=== PATIENT | male | born 1975 | race Caucasian/White ===

== ENCOUNTER 2017-01-22 21:40 | Emergency (ER) | payer OTHER ==
[~2017-01-22] VITALS: Ht 180.3 cm; Wt 93.4 kg
[~2017-01-22 21:40] MED LIST: CLON0.2T12 PO; PANT40TA4 PO
[2017-01-22] MEDS ORDERED: ONDANSETRON ODT 4 MG TAB.RAPDIS SL ONE (23:00)
[2017-01-22] MEDS ORDERED: OXYCODONE/APAP 5-325 MG TABLET PO ONE (23:00)
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
[2017-01-22] MEDS ORDERED: ONDANSETRON ODT 4 MG TAB.RAPDIS ONE (23:12)
[2017-01-22] MEDS ORDERED: OXYCODONE/APAP 5-325 MG TABLET ONE (23:13)
--- NOTE | 2017-01-23 01:00 | NUR ---
Patient discharged to home in stable conditon. Written and verbal after care instructions given. Patient verbalizes understanding of instructions. WALKED OUT OF ER WITH STEADY GAIT WITH NO DISTRESS NOTED
[2017-01-23 01:38] VITALS: BP 140/100
== END 2017-01-23 01:39 | disposition home or self-care (01) ==
LOC: ER 21:40
DX: S16.1XXA Strain of muscle, fascia and tendon at neck level, initial encounter (principal); M54.5 Low back pain; F41.9 Anxiety disorder, unspecified; F41.0 Panic disorder [episodic paroxysmal anxiety]; F17.200 Nicotine dependence, unspecified, uncomplicated; Z88.6 Allergy status to analgesic agent; V43.52XA Car driver injured in collision with other type car in traffic accident, initial encounter; Y93.89 Activity, other specified; Y99.8 Other external cause status; Y92.411 Interstate highway as the place of occurrence of the external cause
CPT/HCPCS: 72072; 72100; 72125; A4663; Q0162

== ENCOUNTER 2019-01-16 19:24 | Inpatient (IN) | payer OTHER ==
[~2019-01-16] VITALS: Ht 177.8 cm; Wt 85.7 kg
[2019-01-16] MEDS ORDERED: LORAZEPAM 2 MG/1 ML VIAL IV ONE (19:30)
[2019-01-16] MEDS ORDERED: ASPIRIN 325 MG TABLET PO ONE (19:30)
[2019-01-16] MEDS ORDERED: NITROGLYCERIN 0.4 MG/TAB BOTTLE SL ONE ×2 (19:30→19:43)
[2019-01-16] MEDS ORDERED: ASPIRIN 325 MG TABLET ONE (19:42)
[2019-01-16] MEDS ORDERED: LORAZEPAM 2 MG/1 ML VIAL ONE (19:43)
[2019-01-16 19:45] LABS: BASOPHILS # (AUTO) 0.1 K/uL (0.0-8.0); BASOPHILS % (AUTO) 0.6 % (0.0-2.0); EOSINOPHILS # (AUTO) 0.1 K/uL (0.0-0.7); EOSINOPHILS % (AUTO) 1.5 % (0.0-7.0); HEMATOCRIT 44.5 % (36.7-47.1); LYMPHOCYTES # (AUTO) 1.1 K/uL (20.0-40.0); LYMPHOCYTES % (AUTO) 14.2 % (20.5-51.5); MEAN CORPUSCULAR HEMOGLOBIN 28.3 uug (23.8-33.4); MEAN CORPUSCULAR HGB CONC 34 g/dL (32.5-36.3); MEAN CORPUSCULAR VOLUME 83.9 fL (73.0-96.2); MONOCYTES # (AUTO) 0.3 K/uL (2.0-10.0); MONOCYTES % (AUTO) 4.1 % (0.0-11.0); NEUTROPHILS # (AUTO) 6.3 K/uL (1.8-8.9); NEUTROPHILS % (AUTO) 79.6 % (38.5-71.5); PLATELET COUNT (AUTO) 256 K/uL (152-348); WHITE BLOOD COUNT (AUTO) 7.9 K/uL (3.6-10.2)
--- NOTE | 2019-01-16 19:47 | NUR ---
AFTER 1ST DOSE OF NITRO SUB LINGUAL. CP IS 7/10 CHEST PRESSURE
--- NOTE | 2019-01-16 19:52 | NUR ---
AFTER 2ND DOSE OF NITRO CP IS 5/10 PRESSURE PAIN. HELD 3RD DOSE OF NITRO DUE TO BP AT 84/47 DR LARSEN AWARE
[2019-01-16 20:02] LABS: CREATININE 0.9 mg/dL (0.6-1.3); POTASSIUM 3.8 mmol/L (3.5-5.1)
[2019-01-16 20:15] LABS: BILIRUBIN,DIRECT 0.1 mg/dL (0.0-0.2); BILIRUBIN,TOTAL 0.4 mg/dL (0.2-1.0); TOTAL PROTEIN, SERUM 8.1 g/dL (6.4-8.2)
[2019-01-16] MEDS ORDERED: ALPRAZOLAM 0.5 MG (20:34)
[2019-01-16] MEDS ORDERED: OXYCODONE/APAP 5-325 MG TABLET ONE (22:39)
[2019-01-16] MEDS ORDERED: OXYCODONE/APAP 5-325 MG TABLET PO ONE (22:45)
[2019-01-17 00:10] VITALS: BP 106/69
--- NOTE | 2019-01-17 00:10 | NUR ---
transfered t 2nd floor
--- NOTE | 2019-01-17 00:35 | NUR ---
Received patient from ER. Patient is A/Ox4. Patient is able to ambulate from the gurney to the bed, a little unsteady. Have bed alarm on for now and explained to patient to call us for standby assist to the restroom. No signs of acute distress noted. Patient still complaining of chest pain, no SOB. Belongings list done. Safety measures initiated. Bed is low and locked, call light within reach. Will continue with the admission process.
[2019-01-17] MEDS ORDERED: ZOLPIDEM 5 MG TABLET PO PRN (01:30)
[2019-01-17] MEDS ORDERED: ACETAMINOPHEN 325 MG TABLET PO PRN (01:30)
[2019-01-17] MEDS ORDERED: ONDANSETRON 4 MG/2 ML VIAL IV PRN (01:30)
[2019-01-17] MEDS ORDERED: Z GUARD REMEDY PASTE 57 GM TUBE TOP PRN (01:30)
[2019-01-17] MEDS ORDERED: ENOXAPARIN SODIUM 40 MG/0.4 ML DISP.SYRIN SQ ONE (02:00)
[2019-01-17 03:16] VITALS: BP 91/57
[2019-01-17] MEDS: MORPHINE SULFATE 2 MG/1 ML DISP.SYRIN IV PRN ×3 (04:48→13:57)
--- NOTE | 2019-01-17 07:49 | NUR ---
Pt.sleeping,no s/s of distress or pain noted.
[2019-01-17] MEDS ORDERED: CARVEDILOL 3.125 MG TABLET PO SCH (08:00)
[2019-01-17] MEDS ORDERED: ASPIRIN EC 81 MG TABLET.DR PO SCH (09:00)
[2019-01-17 11:00] VITALS: BP 80/52
--- NOTE | 2019-01-17 12:09 | NUR ---
Pt.was seen by .
--- NOTE | 2019-01-17 12:45 | NUR ---
Pt.was seen by with c/c home orders.
[2019-01-17 16:00] VITALS: BP 85/68
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
--- NOTE | 2019-01-17 19:20 | NUR ---
Received patient lying in bed. AAOX4. in no acute distress. Denies any chest pain or SOB. NSR on tele at 92/min. Patient reported dizziness going away now. BP now 121/85. Wanted to take a shower before discharge. KELSEY Patel to assist patient. Other needs attended to and met. Continue to monitor.
[2019-01-17 20:00] VITALS: BP 121/85
[2019-01-17] MEDS ORDERED: ENOXAPARIN SODIUM 40 MG/0.4 ML DISP.SYRIN SQ SCH (21:00)
[2019-01-17] MEDS ORDERED: ATORVASTATIN 20 MG TABLET PO SCH (21:00)
--- NOTE | 2019-01-17 21:15 | NUR ---
Patient remains AAOX4. Denies any further dizziness. VS WNL. Stated he can leave now. Tele monitor removed. IV line discontinued and name tag removed. Discharge to home. Patient has private transportation.
== END 2019-01-17 21:15 | disposition home or self-care (01) | DRG 203 ==
LOC: ER 19:24 → TELE3 23:36
PROVIDERS: ADMIT Nurse Practitioner Acute Care
DX: R07.89 Other chest pain (principal); F41.0 Panic disorder [episodic paroxysmal anxiety]; I10 Essential (primary) hypertension; G89.29 Other chronic pain; K29.70 Gastritis, unspecified, without bleeding; Z87.11 Personal history of peptic ulcer disease; Z90.49 Acquired absence of other specified parts of digestive tract
CPT/HCPCS: 36415; 70030-TC; 71045; 85025; 85730; 93005; 93307; G0378; J1650; J2060; J2270; J7040

== ENCOUNTER 2019-05-28 18:00 | Emergency (ER) | payer OTHER ==
[~2019-05-28] VITALS: Ht 180.3 cm; Wt 85.3 kg
[~2019-05-28 18:00] MED LIST changes: +ALPRAZOLAM 0.5 MG; -PANT40TA4 PO
--- NOTE | 2019-05-28 19:53 | NUR ---
Patient discharged to home in stable conditon. Written and verbal after care instructions given. Patient verbalizes understanding of instructions. AMBULATORY WITH STABLE GAIT ALL BELONGINGS WITH PT
[2019-05-28 23:30] VITALS: BP 130/80
== END 2019-05-28 19:50 | disposition home or self-care (01) ==
LOC: ER 18:06
DX: M77.11 Lateral epicondylitis, right elbow (principal); I10 Essential (primary) hypertension; F41.9 Anxiety disorder, unspecified; F17.200 Nicotine dependence, unspecified, uncomplicated; F41.0 Panic disorder [episodic paroxysmal anxiety]; Z90.49 Acquired absence of other specified parts of digestive tract; Z88.8 Allergy status to other drugs, medicaments and biological substances; Z79.899 Other long term (current) drug therapy
CPT/HCPCS: 73080; A4663

== ENCOUNTER 2019-10-06 15:11 | Emergency (ER) | payer OTHER ==
[~2019-10-06] VITALS: Ht 180.3 cm; Wt 83.9 kg
[2019-10-06] MEDS ORDERED: IV NORMAL SALINE 500 ML BAG IV ONE (16:15)
[2019-10-06] MEDS ORDERED: NITROGLYCERIN 0.4 MG/TAB BOTTLE SL ONE ×2 (16:15→16:29)
[2019-10-06 16:31] LABS: BASOPHILS % (AUTO) 0.8 % (0.0-2.0); EOSINOPHILS % (AUTO) 0.1 % (0.0-7.0); HEMATOCRIT 42.9 % (36.7-47.1); HEMOGLOBIN 14.4 g/dL (12.5-16.3); LYMPHOCYTES # (AUTO) 0.7 K/uL (20.0-40.0); LYMPHOCYTES % (AUTO) 15.8 % (20.5-51.5); MEAN CORPUSCULAR HEMOGLOBIN 28.4 uug (23.8-33.4); MEAN CORPUSCULAR HGB CONC 34 g/dL (32.5-36.3); MEAN CORPUSCULAR VOLUME 84.8 fL (73.0-96.2); MONOCYTES # (AUTO) 0.3 K/uL (2.0-10.0); MONOCYTES % (AUTO) 6.5 % (0.0-11.0); NEUTROPHILS # (AUTO) 3.4 K/uL (1.8-8.9); NEUTROPHILS % (AUTO) 76.8 % (38.5-71.5); PLATELET COUNT (AUTO) 265 K/uL (152-348); RED BLOOD CELL COUNT(AUTO) 5.07 MIL/uL (4.06-5.63); WHITE BLOOD COUNT (AUTO) 4.5 K/uL (3.6-10.2)
[2019-10-06 16:40] LABS: CREATININE 0.9 mg/dL (0.6-1.3); POTASSIUM 3.4 mmol/L (3.5-5.1)
[2019-10-06 16:52] LABS: BILIRUBIN,DIRECT 0.2 mg/dL (0.0-0.2); BILIRUBIN,TOTAL 0.5 mg/dL (0.2-1.0); TOTAL PROTEIN, SERUM 7.9 g/dL (6.4-8.2)
[2019-10-06] MEDS ORDERED: ONDANSETRON 4 MG/2 ML VIAL ONE (17:29)
[2019-10-06] MEDS ORDERED: HYDROMORPHONE 1 MG/1 ML DISP.SYRIN ONE (17:29)
[2019-10-06] MEDS ORDERED: PANTOPRAZOLE SODIUM 40 MG VIAL IV ONE (17:30)
[2019-10-06] MEDS ORDERED: PANTOPRAZOLE SODIUM 40 MG VIAL ONE (17:30)
[2019-10-06] MEDS ORDERED: HYDROMORPHONE 1 MG/1 ML DISP.SYRIN IV ONE (17:30)
[2019-10-06] MEDS ORDERED: ONDANSETRON 4 MG/2 ML VIAL IV ONE (17:30)
--- NOTE | 2019-10-06 17:50 | NUR ---
Patient discharged to home in stable conditon. Written and verbal after care instructions given. Patient verbalizes understanding of instructions. Patient ambulated with stable gait. Patient instructed not to drive d/t medications. Stated he will have his son or uber/lyft take him home. IV removed. Catheter intact and site benign. Pressure and 4x4 gauze applied to site. No bleeding noted.
[2019-10-06 17:51] VITALS: BP 111/85
== END 2019-10-06 17:51 | disposition home or self-care (01) ==
LOC: ER 15:11
DX: R07.89 Other chest pain (principal); I10 Essential (primary) hypertension; F41.9 Anxiety disorder, unspecified; F17.200 Nicotine dependence, unspecified, uncomplicated; Z90.49 Acquired absence of other specified parts of digestive tract; Z88.8 Allergy status to other drugs, medicaments and biological substances; Z79.899 Other long term (current) drug therapy
CPT/HCPCS: 36415; 71045; 80048; 80076; 83880; 84484; 85025; 85730; 93005; 96374; 96375; 99284; C9113; J1170; J2405; 70030-TC; A4663; J7040

== ENCOUNTER 2019-11-11 01:43 | Emergency (ER) | payer OTHER ==
[~2019-11-11] VITALS: Ht 180.3 cm; Wt 81.6 kg
--- NOTE | 2019-11-11 01:45 | NUR ---
Dr. Cisneros at bedside for MSE
[2019-11-11] MEDS ORDERED: DEXAMETHASONE SOD PHOSPHATE 4 MG INJ ONE (02:10)
[2019-11-11] MEDS ORDERED: ACETAMINOPHEN ES 500 MG TABLET ONE (02:10)
[2019-11-11] MEDS: DEXAMETHASONE SOD PHOSPHATE 4 MG INJ IM ONE (02:14)
[2019-11-11] MEDS: ACETAMINOPHEN ES 500 MG TABLET PO ONE (02:15)
[2019-11-11] MEDS ORDERED: HYDROCODONE/APAP 5-325MG TABLET ONE (03:19)
[2019-11-11] MEDS: HYDROCODONE/APAP 5-325MG TABLET PO ONE (03:21)
--- NOTE | 2019-11-11 04:50 | NUR ---
cervical collar applied per Dr. Cisneros's orders. Patient tolerated well
--- NOTE | 2019-11-11 04:59 | NUR ---
Patient taken to CT scan in stable condition
--- NOTE | 2019-11-11 05:08 | NUR ---
Patient back from CT scan
[2019-11-11] MEDS ORDERED: ONDANSETRON ODT 4 MG TAB.RAPDIS ONE (05:41)
[2019-11-11] MEDS ORDERED: HYDROMORPHONE 1 MG/1 ML DISP.SYRIN ONE (05:42)
[2019-11-11] MEDS: HYDROMORPHONE 1 MG/1 ML DISP.SYRIN IM ONE (05:50)
[2019-11-11] MEDS: ONDANSETRON ODT 4 MG TAB.RAPDIS SL ONE (05:53)
--- NOTE | 2019-11-11 06:11 | NUR ---
Patient discharged to home in stable conditon. Written and verbal after care instructions given. Patient verbalizes understanding of instructions. Wheeled patient to parking lot to son's car. Patient stated he is not driving home.
[2019-11-11 06:14] VITALS: BP 138/91
== END 2019-11-11 06:11 | disposition home or self-care (01) ==
LOC: ER 01:47
DX: S89.91XA Unspecified injury of right lower leg, initial encounter (principal); S13.9XXA Sprain of joints and ligaments of unspecified parts of neck, initial encounter; S23.3XXA Sprain of ligaments of thoracic spine, initial encounter; S09.90XA Unspecified injury of head, initial encounter; I10 Essential (primary) hypertension; F41.9 Anxiety disorder, unspecified; F17.200 Nicotine dependence, unspecified, uncomplicated; G89.29 Other chronic pain; Z90.49 Acquired absence of other specified parts of digestive tract; Z88.6 Allergy status to analgesic agent; Z60.2 Problems related to living alone; Z79.899 Other long term (current) drug therapy; W01.0XXA Fall on same level from slipping, tripping and stumbling without subsequent striking against object, initial encounter; Y93.53 Activity, golf; Y92.89 Other specified places as the place of occurrence of the external cause; Y99.8 Other external cause status
CPT/HCPCS: 29505; 72040; 72100; 72125; 96372 ×2; 99284; J1100; J1170; A4663; A9150; Q0162

== ENCOUNTER 2019-11-12 04:58 | Emergency (ER) | payer OTHER ==
[~2019-11-12] VITALS: Ht 180.3 cm; Wt 81.6 kg
[2019-11-12] MEDS ORDERED: DEXAMETHASONE SOD PHOSPHATE 4 MG INJ ONE (05:24)
--- NOTE | 2019-11-12 05:26 | NUR ---
Patient discharged to home in stable conditon. Written and verbal after care instructions given. Patient verbalizes understanding of instructions.
[2019-11-12] MEDS ORDERED: DEXAMETHASONE SOD PHOSPHATE 4 MG INJ IM ONE (05:30)
== END 2019-11-12 05:27 | disposition home or self-care (01) ==
LOC: ER 05:02
DX: M54.2 Cervicalgia (principal); I10 Essential (primary) hypertension; F41.9 Anxiety disorder, unspecified; G89.29 Other chronic pain; F17.200 Nicotine dependence, unspecified, uncomplicated; Z60.2 Problems related to living alone; Z79.899 Other long term (current) drug therapy; Z90.49 Acquired absence of other specified parts of digestive tract; Z88.6 Allergy status to analgesic agent; W01.0XXA Fall on same level from slipping, tripping and stumbling without subsequent striking against object, initial encounter; Y93.53 Activity, golf; Y92.89 Other specified places as the place of occurrence of the external cause; Y99.8 Other external cause status
CPT/HCPCS: 96372; 99283; J1100; A4663

== ENCOUNTER 2019-12-02 21:02 | Emergency (ER) | payer OTHER ==
[~2019-12-02] VITALS: Ht 180.3 cm; Wt 83.9 kg
--- NOTE | 2019-12-02 21:50 | NUR ---
Dr. Lara at bedside for MSE.
[2019-12-02] MEDS ORDERED: HYDROMORPHONE 2 MG/1 ML DISP.SYRIN ONE (21:54)
[2019-12-02] MEDS ORDERED: ONDANSETRON 4 MG/2 ML VIAL ONE (21:54)
--- NOTE | 2019-12-02 21:59 | NUR ---
Xray at bedside.
[2019-12-02] MEDS ORDERED: HYDROMORPHONE 1 MG/1 ML DISP.SYRIN IM ONE (22:00)
[2019-12-02] MEDS ORDERED: ONDANSETRON 4 MG/2 ML VIAL IM ONE (22:00)
--- NOTE | 2019-12-02 22:31 | NUR ---
Patient discharged to home in stable conditon. Written and verbal after care instructions given. Patient verbalizes understanding of instructions. PT ambulated out of ER with crutches, no falls noted, no acute signs of distress, VSS, all belongings taken.
--- NOTE | 2019-12-02 22:31 | NUR ---
Note jayleen in EDM - 12/02/19 at 2231 by JOE Patient discharged to home in stable conditon. Written and verbal after care instructions given. Patient verbalizes understanding of instructions. PT ambulated out of ER with steady gait, no acute signs of distress, VSS, all belongings taken.
[2019-12-02 22:32] VITALS: BP 105/75
== END 2019-12-02 22:32 | disposition home or self-care (01) ==
LOC: ER 21:02
DX: M25.561 Pain in right knee (principal); I10 Essential (primary) hypertension; F17.200 Nicotine dependence, unspecified, uncomplicated; Z90.49 Acquired absence of other specified parts of digestive tract; Z88.8 Allergy status to other drugs, medicaments and biological substances; Z79.899 Other long term (current) drug therapy; W19.XXXA Unspecified fall, initial encounter; Y93.89 Activity, other specified; Y92.89 Other specified places as the place of occurrence of the external cause; Y99.8 Other external cause status
CPT/HCPCS: 73564; 96372 ×2; 99284; J1170; J2405; A4663

== ENCOUNTER 2020-05-24 11:51 | Emergency (ER) | payer OTHER ==
[~2020-05-24] VITALS: Ht 180.3 cm; Wt 83.9 kg
--- NOTE | 2020-05-24 13:12 | NUR ---
PT SEEN BY DR LERMA - PRESCRIPTION ORDERED AND FOLLOW UP W/ ENT. DISCHARGED IN STABLE CONDITION
[2020-05-24 13:14] VITALS: BP 129/86
== END 2020-05-24 13:15 | disposition home or self-care (01) ==
LOC: ER 11:51
DX: H66.012 Acute suppurative otitis media with spontaneous rupture of ear drum, left ear (principal); I10 Essential (primary) hypertension; G89.29 Other chronic pain; Z79.899 Other long term (current) drug therapy; Z88.6 Allergy status to analgesic agent; K29.70 Gastritis, unspecified, without bleeding; F17.200 Nicotine dependence, unspecified, uncomplicated
CPT/HCPCS: A4663